=== PATIENT | male | born 1995 | race Two or more races ===

== ENCOUNTER 2018-10-05 08:34 | Emergency (ER) | payer MEDICAID, OTHER ==
[~2018-10-05] VITALS: Ht 165.1 cm; Wt 88.5 kg
[2018-10-05] MEDS ORDERED: KETOROLAC TROMETH 60MG/2ML VIAL IM ONE (09:30)
[2018-10-05] MEDS ORDERED: HYDROcodone-ACET 5/325MG TAB PO ONE (09:30)
[2018-10-05] MEDS ORDERED: TETANUS-DIPTH-ACEL PERTUSSIS 0.5ML SYRG IM ONE (10:15)
[2018-10-05 10:34] VITALS: BP 134/65
[2018-10-05] MEDS ORDERED: BACITRACIN TOP OINT 1 UD PKG TOP ONE (11:00)
[2018-10-05] MEDS ORDERED: LIDOCAINE 1% HCL (LOCAL ANESTH.) INJ 20ML MDV IJ ONE (11:00)
== END 2018-10-05 10:55 | disposition home or self-care (01) ==
LOC: ER 08:34
DX: S61.012A Laceration without foreign body of left thumb without damage to nail, initial encounter (principal); E66.9 Obesity, unspecified; Z68.32 Body mass index [BMI] 32.0-32.9, adult; W22.8XXA Striking against or struck by other objects, initial encounter; Y93.89 Activity, other specified; Y92.89 Other specified places as the place of occurrence of the external cause; Y99.8 Other external cause status
CPT/HCPCS: 12001; 90471; 90715

== ENCOUNTER 2019-04-02 15:28 | Emergency (ER) | payer SELFPAY ==
[~2019-04-02] VITALS: Ht 165.1 cm; Wt 91.2 kg
[2019-04-02 16:36] VITALS: BP 152/91
== END 2019-04-02 16:55 | disposition home or self-care (01) ==
LOC: ER 15:28
DX: J03.90 Acute tonsillitis, unspecified (principal)

== ENCOUNTER 2021-04-20 22:00 | Emergency (ER) | payer MEDICAID, OTHER ==
[~2021-04-20] VITALS: Ht 165.1 cm; Wt 80.7 kg
[2021-04-20 22:51] LABS: Basophils # (auto) 0.1 10 ^3/uL (0-0.2); Basophils % (auto) 0.5 % (0.0-2.0); Eosinophils # (auto) 0 10 ^3/uL (0-0.8); Hematocrit 47.5 % (41.0-53.0); Hemoglobin 16.7 g/dL (13.5-17.5); Lymphocytes % (auto) 7.6 % (10.0-50.0); Mean Corpuscular Hemoglobin 32.8 pg (28.0-32.0); Mean Corpuscular Hgb Conc. 35.1 g/dL (32.0-36.0); Mean Corpuscular Volume 93.5 fL (80.0-100.0); Monocytes # (auto) 0.8 10 ^3/uL (0-1.3); Monocytes % (auto) 6.2 % (0.0-12.0); Neutrophils # (auto) 11.5 10 ^3/uL (1.6-8.6); Neutrophils % (auto) 85.7 % (37.0-80.0); Nucleated Red Blood Cells % 0.7 %; Red Blood Cells 5.08 10^6/uL (4.5-5.90); Red Cell Distribution Width 14.3 % (11.8-14.3); White Blood Cell 13.4 10^3/uL (4.4-10.8)
[2021-04-20 23:07] LABS: Albumin 4.3 g/dL (3.4-5.0); Calcium 9.5 mg/dL (8.5-10.1); Potassium 4.1 mmol/L (3.5-5.1)
[2021-04-20 23:16] LABS: BUN/Creatinine Ratio 8.4; Bilirubin, Total 1.7 mg/dL (0.2-1.0); Total Protein 8.1 g/dL (6.4-8.2)
[2021-04-21 00:02] VITALS: BP 155/96
[2021-04-21 01:14] LABS: Urine Bacteria NONE SEEN /hpf (None Seen); Urine Blood Negative /uL (Negative); Urine Hyaline Cast FEW /lpf (0 - 2); Urine Mucus FEW (None Seen); Urine Specific Gravity 1.034 (1.001-1.035); Urine WBC 4 /hpf (0 - 3)
[2021-04-21] MEDS ORDERED: PERCOT PO (03:22)
== END 2021-04-21 03:52 | disposition home or self-care (01) ==
LOC: ER 22:00
DX: F10.10 Alcohol abuse, uncomplicated (principal); E80.6 Other disorders of bilirubin metabolism; R10.84 Generalized abdominal pain
CPT/HCPCS: 36415; 71045; 74176; 80053; 81001; 83690; 85025

== ENCOUNTER 2022-09-12 13:38 | Emergency (ER) | payer SELFPAY ==
[~2022-09-12] VITALS: Ht 167.6 cm; Wt 82.0 kg
[~2022-09-12 13:38] MED LIST: PERCOT PO
[2022-09-12] MEDS ORDERED: HYDROcodone-ACET 5/325MG TAB PO ONE (14:15)
[2022-09-12 14:49] VITALS: BP 122/79; PULSE 83; RESP 18; TEMP 99.2; O2SAT 96
[2022-09-12] MEDS ORDERED: TRAM50TA2 PO ×2 (14:52→14:54)
== END 2022-09-12 15:02 | disposition home or self-care (01) ==
LOC: ER 13:38
DX: S22.32XA Fracture of one rib, left side, initial encounter for closed fracture (principal); F10.90 Alcohol use, unspecified, uncomplicated; W18.39XA Other fall on same level, initial encounter; Y93.55 Activity, bike riding; Y92.828 Other wilderness area as the place of occurrence of the external cause; Y99.8 Other external cause status
CPT/HCPCS: 71101

== ENCOUNTER 2022-12-16 12:40 | Emergency (ER) | payer MEDICAID ==
[~2022-12-16] VITALS: Ht 167.6 cm; Wt 80.5 kg
[~2022-12-16 12:40] MED LIST changes: +TRAM50TA2 PO
[2022-12-16] MEDS ORDERED: cefTRIAXone SOD 1,000 MG VL IM ONE (13:45)
[2022-12-16] MEDS ORDERED: TETANUS-DIPTH-ACEL PERTUSSIS 0.5ML SYR Tdap IM ONE (13:45)
[2022-12-16] MEDS ORDERED: HYDROcodone-ACET 5/325MG TAB PO ONE (13:45)
[2022-12-16 13:56] VITALS: BP 115/62; PULSE 80; RESP 18; TEMP 98.7; O2SAT 96
[2022-12-16] MEDS ORDERED: MUPI2OIN2 EX (14:58)
[2022-12-16] MEDS ORDERED: CEPH500C PO (14:58)
[2022-12-16] MEDS ORDERED: CYCL-611 PO (14:58)
[2022-12-16] MEDS ORDERED: IBUP1TAB5 PO (14:58)
== END 2022-12-16 15:05 | disposition home or self-care (01) ==
LOC: ER 12:40
DX: S01.511A Laceration without foreign body of lip, initial encounter (principal); S33.5XXA Sprain of ligaments of lumbar spine, initial encounter; S23.3XXA Sprain of ligaments of thoracic spine, initial encounter; Y04.8XXA Assault by other bodily force, initial encounter; Y93.89 Activity, other specified; Y92.89 Other specified places as the place of occurrence of the external cause; Y99.8 Other external cause status
CPT/HCPCS: 70486; 72070; 72100; 90471; 90715; 96372; 99285; J0696